=== PATIENT | female | born 1935 | race Caucasian/White ===

== ENCOUNTER → 2016-09-15 | Outpatient (CLI) | payer OTHER, MEDICARE ==
[~2016-09-15] MED LIST: ACET325T96 PO; ASPI81TA28 PO; ATRINS NEB; CALC500C3 PO; DXY100 PO; FOLI1TAB7 PO; FURO-85 PO; LACTCAP3 PO; LEVO25TA5 PO; MELO7.5T5 PO; MENTOIN TOP; METO25TA56 PO; MULT-506 PO; NUTR-7 PO; PANT40TA PO; PRD20 PO; PRED10TA PO; PREG1CAP28 PO; SALI0.657 NAE; SERT50TA PO; SIMV10TA2 PO; THIA50TA3 PO; TRAM-10 PO
--- NOTE | 2016-09-15 13:27 | DIAGNOSTIC IMAGING REPORT ---
CHEST CT WITHOUT CONTRAST CT DOSE: 228.67 mGycm HISTORY: Pulmonary nodularity MULTIPLE LUNG NODULES TECHNIQUE: Multiaxial CT images of the chest were performed without contrast. COMPARISON: 06/02/2016 FINDINGS: Considerable improvement in the CT compared to the prior exam. Pulmonary apices are now considered generally clear. Small residual groundglass opacity left upper lung measuring 5 mm transaxial image 10. Right upper lobe groundglass opacities measuring 5 and 7 mm respectively. These are improved from the prior study. Minimal 5 mm residual density lingula transaxial image 30. General resolution of the bulk of the findings described in the prior exam. Left base is considerably improved with a small residual density left posterior costophrenic angle measuring 9 mm. No evidence for new interval or progressive process. The significant improvement suggests an inflammatory process. No significant mediastinal or hilar adenopathy. Left upper abdominal calcific densities unchanged. Degenerative changes of the osseous structures are stable. IMPRESSION: 1. Considerable improvement in the appearance of the chest. 2. The parenchymal infiltrative and groundglass nodular changes have shown near complete resolution. 3. Minimal residual changes are within the right upper lung and left base with a six-month follow-up recommended. 4. The improving scenario is most consistent with that of a resolving inflammatory process. Electronically signed by: Dustin Sams M.D. 09/15/2016 1:26 PM Dictated Date/Time: 09/15/2016 1:20 PM
== END | disposition home or self-care (01) ==
LOC: C.CTS 12:46
PROVIDERS: ATTEND Internal Medicine Pulmonary Disease
DX: R91.8 Other nonspecific abnormal finding of lung field (principal)

== ENCOUNTER → 2016-10-30 | Outpatient (CLI) | payer OTHER, MEDICARE ==
[2016-10-30 12:06] LABS: HEMATOCRIT 31.5 % (37-47); MEAN CORPUSCULAR HEMOGLOBIN 29.9 pg (25-34); MEAN PLATELET VOLUME 10.3 fL (7.4-10.4); PLATELET COUNT 193 K/uL (130-400); RED BLOOD COUNT 3.58 M/uL (4.2-5.4); WHITE BLOOD COUNT 6.73 K/uL (4.8-10.8)
[2016-10-30 12:32] LABS: BLOOD UREA NITROGEN 13 mg/dl (7-18); BUN/CREATININE RATIO 18.5 (10-20); CARBON DIOXIDE 26 mmol/L (21-32); CHLORIDE 100 mmol/L (98-107); CREATININE 0.71 mg/dl (0.60-1.20); GLUCOSE 103 mg/dl (70-99); SODIUM 136 mmol/L (136-145)
== END | disposition home or self-care (01) ==
LOC: C.LABWYN 12:20
PROVIDERS: ATTEND Internal Medicine
DX: R05 Cough (principal); I50.9 Heart failure, unspecified

== ENCOUNTER → 2016-11-27 | Outpatient (CLI) | payer OTHER, MEDICARE ==
[2016-11-27 12:01] LABS: HEMATOCRIT 33.4 % (37-47); MEAN CELL VOLUME 88.6 fL (80-100); MEAN CORPUSCULAR HEMOGLOBIN 29.4 pg (25-34); MEAN CORPUSCULAR HGB CONC 33.2 g/dl (32-36); MEAN PLATELET VOLUME 9.8 fL (7.4-10.4); PLATELET COUNT 192 K/uL (130-400); RED BLOOD COUNT 3.77 M/uL (4.2-5.4); WHITE BLOOD COUNT 4.82 K/uL (4.8-10.8)
[2016-11-27 12:12] LABS: ALT/SGPT 22 U/L (12-78); AST/SGOT 19 U/L (15-37); BLOOD UREA NITROGEN 18 mg/dl (7-18); BUN/CREATININE RATIO 19.3 (10-20); CARBON DIOXIDE 28 mmol/L (21-32); CHLORIDE 99 mmol/L (98-107); CHOLESTEROL 183 mg/dl (0-200); CREATININE 0.95 mg/dl (0.60-1.20); GLUCOSE 98 mg/dl (70-99); POTASSIUM 4.2 mmol/L (3.5-5.1); SODIUM 136 mmol/L (136-145); TRIGLYCERIDES 86 mg/dl (0-150); VERY LOW DENSITY LIPOPROT CALC 17 mg/dl
[2016-11-27 12:14] LABS: CALCIUM 8.8 mg/dl (8.5-10.1)
[2016-11-27 12:16] LABS: CHOLESTEROL/HDL RATIO 2.6; HDL CHOLESTEROL 71 mg/dl; LDL CHOLESTEROL CALCULATED 95 mg/dl
== END | disposition home or self-care (01) ==
LOC: C.LABWYN 08:27
PROVIDERS: ATTEND Internal Medicine Cardiovascular Disease
DX: I10 Essential (primary) hypertension (principal); R94.31 Abnormal electrocardiogram [ECG] [EKG]; I50.32 Chronic diastolic (congestive) heart failure; E78.5 Hyperlipidemia, unspecified

== ENCOUNTER → 2017-01-09 | Outpatient (CLI) | payer OTHER, MEDICARE ==
[~2017-01-09] MED LIST changes: -PRED10TA PO
[2017-01-09 20:27] LABS: URINE APPEARANCE CLEAR (CLEAR); URINE BILIRUBIN NEG (NEG); URINE COLOR YELLOW; URINE NITRITE NEG (NEG); URINE PH 6.5 (4.5-7.5); URINE SPECIFIC GRAVITY 1.011 (1.000-1.030); UROBILINOGEN NEG (NEG)
[2017-01-09 20:28] LABS: MANUAL MICROSCOPIC REQUIRED? NO; REVIEW REQ? NO
== END | disposition home or self-care (01) ==
LOC: C.LABWYN 09:36
PROVIDERS: ATTEND Internal Medicine
DX: R35.0 Frequency of micturition (principal)

== ENCOUNTER → 2017-03-24 | Outpatient (CLI) | payer OTHER, MEDICARE ==
[2017-03-24 13:03] LABS: ESTIMATED AVERAGE GLUCOSE 111 mg/dl; HA1C FLAG Normal (Normal)
== END | disposition home or self-care (01) ==
LOC: C.LABWYN 15:21
PROVIDERS: ATTEND Internal Medicine
DX: R73.9 Hyperglycemia, unspecified (principal)

== ENCOUNTER → 2017-04-21 | Outpatient (CLI) | payer OTHER, MEDICARE ==
--- NOTE | 2017-04-21 11:09 | DIAGNOSTIC IMAGING REPORT ---
(CHEST) THORAX WITHOUT CT DOSE: 498.64 mGycm HISTORY: Lung nodules MULTIPLE LUNG NODULES ON CT TECHNIQUE: Multiaxial CT images of the chest were performed without contrast. A dose lowering technique was utilized adhering to the principles of ALARA. COMPARISON: 09/15/2016 FINDINGS: Generally stable right upper lobe nodules. Bladder is had appearance and show no change given the variations in sectioning and interpreted dimension. Nodular density left midlung transaxial image 30 demonstrates a decrease in volume from 10 to 7 mm. No new or interval findings. Minimal bibasilar atelectasis. No significant hilar or mediastinal adenopathy. Moderate atherosclerotic change thoracic aorta. IMPRESSION: 1. Stable to slightly improved parenchymal nodularity in the right upper lung and left base. 2. Follow-up in 1 year is recommended. The above report was generated using voice recognition software. It may contain grammatical, syntax or spelling errors. Electronically signed by: Dustin Sams M.D. 04/21/2017 11:08 AM Dictated Date/Time: 04/21/2017 11:01 AM
== END | disposition home or self-care (01) ==
LOC: C.CTS 10:31
PROVIDERS: ATTEND Internal Medicine Pulmonary Disease
DX: R91.8 Other nonspecific abnormal finding of lung field (principal)

== ENCOUNTER → 2017-07-09 | Outpatient (CLI) | payer OTHER, MEDICARE ==
[2017-07-09 12:56] LABS: URINE APPEARANCE CLEAR (CLEAR); URINE BILIRUBIN NEG (NEG); URINE COLOR YELLOW; URINE NITRITE NEG (NEG); URINE SPECIFIC GRAVITY 1.014 (1.000-1.030); UROBILINOGEN NEG (NEG)
[2017-07-09 13:10] LABS: MANUAL MICROSCOPIC REQUIRED? NO; REVIEW REQ? NO
== END | disposition home or self-care (01) ==
LOC: C.LABWYN 10:12
PROVIDERS: ATTEND Internal Medicine
DX: R35.0 Frequency of micturition (principal)

== ENCOUNTER → 2017-09-01 | Outpatient (CLI) | payer OTHER, MEDICARE ==
[~2017-09-01] MED LIST changes: +ALBU18002; +AMT50 PO; -FOLI1TAB7 PO; +FOLI1TAB8 PO; +NYSTCRE11; +OMEG12006; +PREG100C PO; +tumeric curcumin
== END | disposition home or self-care (01) ==
LOC: C.LABWYN 11:05
PROVIDERS: ATTEND Internal Medicine
DX: E03.9 Hypothyroidism, unspecified (principal)

== ENCOUNTER → 2017-09-08 | Outpatient (CLI) | payer OTHER, MEDICARE ==
--- NOTE | 2017-09-08 12:25 | DIAGNOSTIC IMAGING REPORT ---
ADDENDUM Right tibia length: 38.4 cm Electronically signed by: Ag Tyler M.D. 09/08/2017 1:41 PM Dictated Date/Time: 09/08/2017 1:41 PM ORIGINAL REPORT LEG LENGTH STUDY (WHOLE LEG) CLINICAL HISTORY: 82 years-old Female presenting with HIP PAIN. TECHNIQUE: Frontal view in standing position of the bilateral legs was obtained as part of a leg length examination. COMPARISON: None. FINDINGS: Right leg: Right femur length: 46.1 cm Right tibia length: 3.4 cm Total length: 84.5 cm Left leg: Left femur length: 44.8 cm Left tibia length: 38.7 cm Total length: 83.5 cm Hip joints, knee joints, and ankle joints congruent. Osteopenia may be present. No advanced degenerative changes evident. No acute fracture or acute malalignment. IMPRESSION: 1. 1 cm leg length discrepancy, right limb longer than left. No other osseous abnormality. Electronically signed by: Ag Tyler M.D. 09/08/2017 12:24 PM Dictated Date/Time: 09/08/2017 12:20 PM
== END | disposition home or self-care (01) ==
LOC: C.RADBC 11:53
PROVIDERS: ATTEND Anesthesiology
DX: M25.552 Pain in left hip (principal); M54.5 Low back pain

== ENCOUNTER → 2017-09-29 | Outpatient (CLI) | payer OTHER, MEDICARE ==
[~2017-09-29] MED LIST changes: +ACET-1693 PO; -ACET325T96 PO; -DXY100 PO; -PRD20 PO; -PREG1CAP28 PO
== END ==
LOC: C.LABWYN 10:49
PROVIDERS: ATTEND Internal Medicine
DX: E03.9 Hypothyroidism, unspecified (principal)

== ENCOUNTER → 2017-12-01 | Outpatient (CLI) | payer OTHER, MEDICARE ==
[2017-12-01 12:35] LABS: HEMATOCRIT 33.7 % (37-47); HEMOGLOBIN 11.1 g/dL (12.0-16.0); MEAN CELL VOLUME 90.1 fL (80-100); MEAN CORPUSCULAR HEMOGLOBIN 29.7 pg (25-34); MEAN CORPUSCULAR HGB CONC 32.9 g/dl (32-36); MEAN PLATELET VOLUME 10.9 fL (7.4-10.4); PLATELET COUNT 165 K/uL (130-400); RED CELL DISTRIBUTION WIDTH SD 42.6 fL (36.4-46.3)
[2017-12-01 13:44] LABS: ALT/SGPT 19 U/L (12-78); AST/SGOT 15 U/L (15-37); BLOOD UREA NITROGEN 12 mg/dl (7-18); CALCIUM 8.8 mg/dl (8.5-10.1); CARBON DIOXIDE 27 mmol/L (21-32); CREATININE 0.73 mg/dl (0.60-1.20); GLUCOSE 102 mg/dl (70-99); POTASSIUM 3.9 mmol/L (3.5-5.1); SODIUM 139 mmol/L (136-145)
[2017-12-01 13:48] LABS: CHOLESTEROL 126 mg/dl (0-200); LDL CHOLESTEROL CALCULATED 55 mg/dl
== END | disposition home or self-care (01) ==
LOC: C.LABWYN 12:49
PROVIDERS: ATTEND Internal Medicine Cardiovascular Disease
DX: I35.0 Nonrheumatic aortic (valve) stenosis (principal); E78.5 Hyperlipidemia, unspecified; R74.8 Abnormal levels of other serum enzymes; I10 Essential (primary) hypertension

== ENCOUNTER → 2017-12-03 | Outpatient (CLI) | payer OTHER, MEDICARE | END | disposition home or self-care (01) | LOC: C.LABSPEC 13:08 | PROVIDERS: ATTEND Internal Medicine | DX: N39.0 Urinary tract infection, site not specified (principal) ==

== ENCOUNTER → 2017-12-08 | Outpatient (CLI) | payer OTHER, MEDICARE ==
[2017-12-08 13:00] LABS: HEMATOCRIT 31.9 % (37-47); HEMOGLOBIN 10.5 g/dL (12.0-16.0); MEAN CELL VOLUME 90.1 fL (80-100); MEAN CORPUSCULAR HEMOGLOBIN 29.7 pg (25-34); MEAN CORPUSCULAR HGB CONC 32.9 g/dl (32-36); MEAN PLATELET VOLUME 10.5 fL (7.4-10.4); PLATELET COUNT 192 K/uL (130-400); RED CELL DISTRIBUTION WIDTH CV 12.7 % (11.5-14.5); RED CELL DISTRIBUTION WIDTH SD 41.6 fL (36.4-46.3); WHITE BLOOD COUNT 6.04 K/uL (4.8-10.8)
[2017-12-08 14:08] LABS: BLOOD UREA NITROGEN 14 mg/dl (7-18); CALCIUM 8.8 mg/dl (8.5-10.1); CARBON DIOXIDE 28 mmol/L (21-32); GLUCOSE 102 mg/dl (70-99); POTASSIUM 3.7 mmol/L (3.5-5.1); SODIUM 133 mmol/L (136-145)
== END | disposition home or self-care (01) ==
LOC: C.LABWYN 17:27
PROVIDERS: ATTEND Nurse Practitioner Adult Health
DX: D64.9 Anemia, unspecified (principal); E03.9 Hypothyroidism, unspecified

== ENCOUNTER 2017-12-25 00:39 | Emergency (ER) | payer OTHER, MEDICARE ==
[~2017-12-25] VITALS: Ht 152.4 cm; Wt 112.3 kg
[2017-12-25 00:49] VITALS: O2SAT 95
[2017-12-25] MEDS ORDERED: METHYLPREDNISOLONE 125 MG VIAL IV STA (01:02)
[2017-12-25] MEDS ORDERED: ALBUT/IPRATROP 3MG/0.5MG NEB 3 ML VIAL INH STA (01:02)
--- NOTE | 2017-12-25 01:03 | EMERGENCY ROOM VISIT NOTE ---
"History Report prepared by Moustapha: Maricruz Pablo Under the Supervision of: Dr. Joelle Carter D.O. First contact with patient: 00:45 Chief Complaint: SHORTNESS OF BREATH Stated Complaint: SHORT OF BREATH History of Present Illness The patient is an 82 year old female who presents to the Emergency Room brought in by EMS with complaints of persistent general shortness of breath since this evening. Per EMS, the patient was recently diagnosed with pneumonia yesterday. She began coughing tonight and could not catch her breath. She has a history of pneumonia in the past. She notes her cough has been difficult to control and it is worsening her breathing. She reports vomiting earlier tonight. She denies any fevers or chills. She notes that she was having trouble breathing for two days now. She notes her blood pressure was elevated and she was concerned. She wears oxygen at home at night. She reports a headache. She has a history of COPD and a smoking history. She was on steroids the last time she had pneumonia , though she cannot remember when. She is not currently on steroids. She is unsure of the name of the antibiotics she is currently taking. Source of History: patient Onset: since this evening Position: other (general ) Quality: other (shortness of breath) Timing: other (persistent) Modifying Factors (Worsening): other (cough) Associated Symptoms: + headache, + cough, + vomiting Note: Notes elevated blood pressure. Review of Systems See HPI for pertinent positives & negatives. A total of 10 systems reviewed and were otherwise negative. Past Medical & Surgical Medical Problems: (1) Alcohol abuse (2) CHF (congestive heart failure) (3) Chronic low back pain (4) COPD (chronic obstructive pulmonary disease) (5) GERD (gastroesophageal reflux disease) (6) HTN (hypertension) (7) Hypothyroidism (8) Hypoxia (9) Polio Surgical Problems: (1) History of cataract surgery (2) History of hysterectomy (3) Hx of cholecystectomy (4) Hx of hernia repair (5) Hx of spleen repair Family History No pertinent family history Social History Smoking Status: Former Smoker Alcohol Use: none Housing Status: prison Current/Historical Medications Scheduled Amitriptyline Hcl (Elavil), 20 MG PO HS Aspirin (Aspirin Ec), 81 MG PO QAM Calcium Carbonate (Tums), 500 MG PO TID Fluticasone Propionate (Nasal) (Flonase Allergy Relief), 1 SPRAY DEBRA DAILY Folic Acid (Folvite), 1 MG PO DAILY Furosemide (Lasix), 20 MG PO BID Gabapentin (Neurontin), 300 MG PO BID Lactobacillus (Acidophilus), 1 CAP PO QAM Levothyroxine Sodium (Levothyroxine Sodium), 1.5 TAB PO QAM Meloxicam (Mobic), 7.5 MG PO HS Menthol-Zinc Oxide (Calmoseptine), 1 APPLN TOP TID Metoprolol Tartrate (Lopressor) (Lopressor), 12.5 MG PO QAM Metoprolol Tartrate (Lopressor) (Lopressor), 12.5 MG PO HS Multivitamin (Multivitamin), 1 TAB PO DAILY Nutritional Supplements (Boost), 1 CAN PO BID Pantoprazole (Protonix), 40 MG PO QAM Prednisone (Prednisone Tab), 2 TABS PO DAILY Pregabalin (Lyrica), 1 CAP PO BID Saline ([place]), 1 SPRY DEBRA QID Sertraline (Zoloft), 150 MG PO HS Simvastatin (Zocor), 10 MG PO HS Thiamine Hcl (Vitamin B-1), 50 MG PO QAM [Amox/Clav 500/125], 1 TAB PO BID Scheduled PRN Acetaminophen Tab (Tylenol), 650 MG PO Q4H PRN for Pain or Fever Ipratropium [place] (Ipratropium [place]), 1 VIAL NEB Q4 PRN for Shortness of Breath Tramadol (Ultram), 50 MG PO Q6 PRN for Pain Miscellaneous Medications Albuterol Sulfate (Proair Respiclick) Nystatin/Triamcinolone (Mycogen || ) [place]-3 Fatty Acids ([place] 3) [tumeric curcumin] Allergies Coded Allergies: Codeine (Verified Adverse Reaction, Unknown, UNKNOWN, 07/05/16) Cortisone (Verified Adverse Reaction, Unknown, UNKNOWN, 07/05/16) Morphine (Verified Adverse Reaction, Unknown, UNKNOWN, 07/05/16) Nitrofurantoin (Verified Adverse Reaction, Unknown, UNKNOWN, 07/05/16) Physical Exam Vital Signs Date Time Temp Pulse Resp B/P (MAP) Pulse Ox O2 Delivery O2 Flow Rate FiO2 12/25/17 04:06 76 20 151/60 93 12/25/17 01:08 36.9 73 22 141/58 94 Nasal Cannula 3.0 12/25/17 00:52 75 12/25/17 00:49 Nasal Cannula 3.0 95 12/25/17 00:49 95 Nasal Cannula 3.0 Physical Exam HEENT: Head - normocephalic and atraumatic Pupils are equal, round, and reactive to light. Extraocular eye muscles are intact, and sclera are anicteric. Nose - moist nasal mucosa without discharge. Mouth - moist buccal mucosa. Oropharynx is nonerythematous and there is no tonsillar exudate or edema noted. Neck: Supple; no JVD, nuchal rigidity, cervical lymphadenopathy. Heart: Regular rate and rhythm. There is a normal S1 and S2 with no murmurs, clicks, or gallops appreciated. Lungs: significant expiratory wheezing in all lung byers. Occasional rhonchi noted. Diminished breath sounds in the left lung base. Abdomen: Soft, completely nontender, nondistended, with good bowel sounds. There are no palpable pulsatile masses or hepatosplenomegaly. There is no guarding, rigidity, or rebound noted. Extremities: No evidence of cyanosis, clubbing, or edema. There are easily palpable peripheral pulses. Skin: warm and dry with good turgor and no rashes. Medical Decision & Procedures ER Provider Diagnostic Interpretation: Radiology results as stated below per my review and interpretation: Chest XR: Large left lower lobe pneumonia. Potentially pleural effusion on the left. Laboratory Results 12/25/17 00:40 Red Blood Count 3.92, Mean Corpuscular Volume 86.5, Mean Corpuscular Hemoglobin 29.3, Mean Corpuscular Hemoglobin Concent 33.9, Mean Platelet Volume 10.1, Neutrophils (%) (Auto) 68.2, Lymphocytes (%) (Auto) 20.2, Monocytes (%) (Auto) 9.2, Eosinophils (%) (Auto) 1.8, Basophils (%) (Auto) 0.4, Neutrophils # (Auto) 3.72, Lymphocytes # (Auto) 1.10, Monocytes # (Auto) 0.50, Eosinophils # (Auto) 0.10, Basophils # (Auto) 0.02 12/25/17 00:40 Test 12/25/17 00:40 White Blood Count 5.45 K/uL (4.8-10.8) Red Blood Count 3.92 M/uL (4.2-5.4) Hemoglobin 11.5 g/dL (12.0-16.0) Hematocrit 33.9 % (37-47) Mean Corpuscular Volume 86.5 fL (80-100) Mean Corpuscular Hemoglobin 29.3 pg (25-34) Mean Corpuscular Hemoglobin Concent 33.9 g/dl (32-36) Platelet Count 209 K/uL (130-400) Mean Platelet Volume 10.1 fL (7.4-10.4) Neutrophils (%) (Auto) 68.2 % Lymphocytes (%) (Auto) 20.2 % Monocytes (%) (Auto) 9.2 % Eosinophils (%) (Auto) 1.8 % Basophils (%) (Auto) 0.4 % Neutrophils # (Auto) 3.72 K/uL (1.4-6.5) Lymphocytes # (Auto) 1.10 K/uL (1.2-3.4) Monocytes # (Auto) 0.50 K/uL (0.11-0.59) Eosinophils # (Auto) 0.10 K/uL (0-0.5) Basophils # (Auto) 0.02 K/uL (0-0.2) RDW Standard Deviation 40.0 fL (36.4-46.3) RDW Coefficient of Variation 12.5 % (11.5-14.5) Immature Granulocyte % (Auto) 0.2 % Immature Granulocyte # (Auto) 0.01 K/uL (0.00-0.02) Anion Gap 7.0 mmol/L (3-11) Est Creatinine Clear Calc Drug Dose 74.1 ml/min Estimated GFR () 95.3 Estimated GFR (Non- 82.2 BUN/Creatinine Ratio 18.5 (10-20) Calcium Level 8.8 mg/dl (8.5-10.1) Troponin I < 0.015 ng/ml (0-0.045) Pro-B-Type Natriuretic Peptide 1629 pg/ml (0-1800) Laboratory results per my review. Medications Administered Medications (Trade) Dose Ordered Sig/Kenny Route Start Time Stop Time Status Last Admin Dose Admin Methylprednisolone Sodium Succinate (Solu-Medrol IV) 125 mg NOW STAT IV 12/25/17 01:02 12/25/17 01:03 DC 12/25/17 01:13 125 MG Albuterol/ Ipratropium (Duoneb) 3 ml NOW STAT INH 12/25/17 01:02 12/25/17 01:03 DC 12/25/17 01:12 3 ML Procedure 0102: Ordered DuoNeb 3 ml INH and Solu-Medrol 125 mg IV ECG Per My Interpretation Indication: SOB/dyspnea Rate (beats per minute): 71 Rhythm: normal sinus Findings: LBBB, left axis deviation Comparison ECG Date: when compared to 07/05/2016 LBBB is new ED Course 0052: Past medical records reviewed. The patient was evaluated in room A2. A complete history and physical exam was performed. IV lock was established. Labs were drawn as above 0102: Ordered DuoNeb 3 ml INH and Solu-Medrol 125 mg IV. The patient had chest x-ray and EKG as described above. 0115: The [facility] notes that the patient is on 125 mg of Augmentin twice a day. 0242: I reassessed the patient at this time. She is resting. Her O2 sat was stable. . I discussed the results and treatment plan with the patient. I answered all pertaining questions that she had. She expressed understanding and verbalized agreement. The patient will be discharged home. 0306: I reassessed the patient at this time. I updated her regarding her steroid use. Medical Decision The patient is an 82 year old female who presents to the ED with shortness of breath. Differential diagnosis includes PNA, bronchitis, COPD exacerbation, URI , and CHF. Lab results showed: WBC 5.4. Hgb 11.5. Na slightly low at 134. Gluc 120. Normal renal function. BNP 1629. Normal troponin. This is a 82-year-old female patient presents to the emergency department with significant cough and shortness of breath. She was diagnosed with pneumonia earlier today and started on Augmentin. The pneumonia was confirmed on chest x- ray to be left lower lobe. Her O2 saturations remained stable. She had no further coughing while here in the emergency department. Patient was given a dose of IV Solu-Medrol and seems to be doing better. I will start her on a burst of prednisone along with the prescribed Augmentin. I have asked the patient to follow-up with her PCP for any persistent symptoms. Medication Reconcilliation Current Medication List: was personally reviewed by me Blood Pressure Screening Patient's blood pressure: Elevated blood pressure Blood pressure disposition: Elevated BP felt to be situational Impression Primary Impression: Left lower lobe pneumonia Scribe Attestation The scribe's documentation has been prepared under my direction and personally reviewed by me in its entirety. I confirm that the note above accurately reflects all work, treatment, procedures, and medical decision making performed by me. Departure Information Dispostion Home / Self-Care Prescriptions Prednisone (Prednisone Tab) 20 Mg Tab 2 TABS PO DAILY for 5 Days, #10 TAB Prov: Joelle Carter D.O. 12/25/17 Referrals [facility] / [facility] (PCP) Forms HOME CARE DOCUMENTATION FORM, IMPORTANT VISIT INFORMATION Patient Instructions My [facility], Pneumonia, Pneumonia Tx Additional Instructions Rest. take antibiotics as directed Take prednisone daily for next 4 days Use nebulizer every 4-6 ours over next 3 days then as needed Problem Qualifiers Primary Impression: Left lower lobe pneumonia Pneumonia type: due to unspecified organism Qualified Codes: J18.1 - Lobar pneumonia, unspecified organism"
[2017-12-25 01:08] VITALS: TEMP 36.9; Ht 152.4 cm; Wt 112.3 kg
[2017-12-25 01:28] LABS: BASO % 0.4 %; BASO ABS # 0.02 K/uL (0-0.2); EOS % 1.8 %; HEMATOCRIT 33.9 % (37-47); HEMOGLOBIN 11.5 g/dL (12.0-16.0); IG# 0.01 K/uL (0.00-0.02); LYMPH % 20.2 %; MEAN CELL VOLUME 86.5 fL (80-100); MEAN CORPUSCULAR HEMOGLOBIN 29.3 pg (25-34); MEAN CORPUSCULAR HGB CONC 33.9 g/dl (32-36); MEAN PLATELET VOLUME 10.1 fL (7.4-10.4); MONO % 9.2 %; NEUT % 68.2 %; NEUT ABS # 3.72 K/uL (1.4-6.5); PLATELET COUNT 209 K/uL (130-400); RED CELL DISTRIBUTION WIDTH CV 12.5 % (11.5-14.5); WHITE BLOOD COUNT 5.45 K/uL (4.8-10.8)
[2017-12-25 01:42] LABS: BLOOD UREA NITROGEN 13 mg/dl (7-18); CALCIUM 8.8 mg/dl (8.5-10.1); CARBON DIOXIDE 26 mmol/L (21-32); CREATININE 0.69 mg/dl (0.60-1.20); GLUCOSE 120 mg/dl (70-99); POTASSIUM 3.9 mmol/L (3.5-5.1); SODIUM 134 mmol/L (136-145)
[2017-12-25] MEDS ORDERED: CLAV PO (02:38)
[2017-12-25] MEDS ORDERED: AMOX PO (02:38)
[2017-12-25] MEDS ORDERED: AMIT10TA6 PO (02:41)
[2017-12-25] MEDS ORDERED: FLUT0.15 NAE (02:45)
[2017-12-25] MEDS ORDERED: GABA-113 PO (02:47)
[2017-12-25] MEDS ORDERED: PRED20TA2 PO (02:48)
[2017-12-25 04:06] VITALS: BP 151/60; PULSE 76; O2SAT 93
--- NOTE | 2017-12-25 07:01 | DIAGNOSTIC IMAGING REPORT ---
CHEST 2 VIEWS ROUTINE CLINICAL HISTORY: 82 years-old Female presenting with cough. TECHNIQUE: AP and lateral views of the chest were obtained. COMPARISON: 09/29/2017. FINDINGS: Atherosclerosis of aortic arch. Cardiac silhouette enlarged. Obscuration of the left heart border secondary to extensive left mid to basilar predominant opacity likely accompanied by a moderate left pleural effusion. Diffuse heterogeneity and prominence of coarse lung markings. Prominent pericardial fat pad along the right heart border, unchanged. Degenerative changes of the thoracic spine. Endovascular coils evident in the epigastrium. IMPRESSION: 1. Left basilar consolidation accompanied by moderate left pleural effusion. This is concerning for pneumonia. 2. Cardiomegaly. 3. Findings suggest background emphysema. Electronically signed by: Ag Tyler M.D. 12/25/2017 7:00 AM Dictated Date/Time: 12/25/2017 6:57 AM
== END 2017-12-25 04:07 | disposition home or self-care (01) ==
LOC: EDBD 00:39 → C.EDA 00:42
DX: J18.1 Lobar pneumonia, unspecified organism (principal); I50.9 Heart failure, unspecified; M54.5 Low back pain; J44.9 Chronic obstructive pulmonary disease, unspecified; K21.9 Gastro-esophageal reflux disease without esophagitis; I10 Essential (primary) hypertension; E03.9 Hypothyroidism, unspecified; A80.9 Acute poliomyelitis, unspecified; R09.02 Hypoxemia; Z88.5 Allergy status to narcotic agent; Z88.8 Allergy status to other drugs, medicaments and biological substances